=== PATIENT | female | born 1970 | race Caucasian/White ===

== ENCOUNTER 2019-07-26 15:07 | Inpatient (IN) ==
[2019-07-26] MEDS ORDERED: *HR* Heparin 10,000 UNIT/10 ML VIAL ONE ×2 (15:25→15:39)
[2019-07-26] MEDS ORDERED: 0.9 % Sodium Chloride 2,000 ML ONE (15:25)
[2019-07-26] MEDS ORDERED: Nitroglycerin 1,000 MCG/10 ML VIAL IV ONE ×2 (15:25→16:40)
[2019-07-26] MEDS ORDERED: Heparin 1,000 UNITS/500 mL 500 ML ONE (15:25)
[2019-07-26] MEDS ORDERED: ISOVUE-370 200 ML INFUS..BTL ONE (15:25)
[2019-07-26] MEDS ORDERED: *HR* FentaNYL (PF) 100 MCG/2 ML VIAL ONE (15:43)
[2019-07-26] MEDS ORDERED: *HR* Midazolam HCl 2 MG/2 ML VIAL ONE (15:43)
[2019-07-26] MEDS ORDERED: Ondansetron 4 MG/2 ML VIAL IVP PRN (17:12)
[2019-07-26 17:43] LABS: Basophils % 0.4 %; Eosinophils % 0.2 %; Hematocrit 39.5 % (35.3-44.9); Hemoglobin 13.1 g/dL (11.5-15.4); Immature Granulocytes % 0.2 % (0-4); Lymphocytes # 1.7 K/mcL (0.6-4.6); Lymphocytes % 17.3 %; Mean Corpuscular HGB Conc 33.2 g/dL (31.6-35.5); Mean Corpuscular Hemoglobin 31.4 pg (28.0-33.3); Mean Corpuscular Volume 94.7 fL (83.0-100.0); Mean Platelet Volume 9.7 fL (9.4-12.4); Monocytes # 0.3 K/mcL (0.0-1.3); Monocytes % 2.8 %; Neutrophils # 7.7 K/mcL (1.6-8.9); Platelet Count 244 K/mcL (140-400); Red Blood Count 4.17 M/mcL (3.82-4.97); Red Cell Distribution Width 13.7 % (11.5-14.5); Segmented Neutrophils % 79.1 %; White Blood Count 9.7 K/mcL (4.3-11.1)
[2019-07-26] MEDS: 0.9 % Sodium Chloride 1,000 ML IVC SCH (18:04)
[2019-07-26] MEDS: Nicotine 14 MG PATCH.TD24 TD SCH (20:27)
[2019-07-26] MEDS: *HR* Ticagrelor 90 MG TABLET PO SCH (20:27)
[2019-07-26] MEDS: Acetaminophen 325 MG TABLET PO PRN (20:29)
[2019-07-27] MEDS: 0.9 % Sodium Chloride 1,000 ML IVC SCH ×3 (03:30→23:46)
[2019-07-27] MEDS: Acetaminophen 325 MG TABLET PO PRN ×3 (03:33→23:55)
[2019-07-27 06:39] LABS: Hematocrit 36.7 % (35.3-44.9); Hemoglobin 12.3 g/dL (11.5-15.4)
[2019-07-27 07:00] LABS: BUN/Creatinine Ratio 26 (6-26); Blood Urea Nitrogen 18 mg/dL (6-20); eGFR For African Americans > 60 (> 60); eGFR For Non-African Americans > 60 (> 60)
[2019-07-27 07:05] LABS: Troponin I 7.54 ng/mL (< 0.04)
[2019-07-27] MEDS: Nicotine 14 MG PATCH.TD24 TD SCH ×2 (08:11→13:58)
[2019-07-27] MEDS: *HR* Ticagrelor 90 MG TABLET PO SCH ×2 (08:11→19:57)
[2019-07-27] MEDS: Aspirin 81 MG TAB.CHEW PO SCH (08:11)
[2019-07-27] MEDS: Metoprolol XL (24 HR) Succ 25 MG TAB.ER.24H PO SCH (10:16)
[2019-07-28 05:02] LABS: Chol/HDL Ratio 3.2 (0-4.9)
[2019-07-28] MEDS: Nicotine 14 MG PATCH.TD24 TD SCH (07:46)
[2019-07-28] MEDS: *HR* Ticagrelor 90 MG TABLET PO SCH (07:48)
[2019-07-28] MEDS: Metoprolol XL (24 HR) Succ 25 MG TAB.ER.24H PO SCH (07:48)
[2019-07-28] MEDS: Aspirin 81 MG TAB.CHEW PO SCH (07:48)
[2019-07-28] MEDS: 0.9 % Sodium Chloride 1,000 ML IVC SCH (07:48)
[2019-07-28] MEDS ORDERED: Ondansetron 4 MG/2 ML VIAL IVP PRN (14:04)
[2019-07-28] MEDS: Acetaminophen 325 MG TABLET PO PRN ×2 (15:34→21:21)
[2019-07-29 02:42] LABS: Hemoglobin 12.4 g/dL (11.5-15.4); Mean Corpuscular HGB Conc 32.6 g/dL (31.6-35.5); Mean Corpuscular Hemoglobin 30.7 pg (28.0-33.3); Mean Corpuscular Volume 94.1 fL (83.0-100.0); Mean Platelet Volume 10.4 fL (9.4-12.4); Platelet Count 235 K/mcL (140-400); Red Blood Count 4.04 M/mcL (3.82-4.97); Red Cell Distribution Width 13.7 % (11.5-14.5); White Blood Count 8.7 K/mcL (4.3-11.1)
[2019-07-29 03:02] LABS: BUN/Creatinine Ratio 28 (6-26); Blood Urea Nitrogen 21 mg/dL (6-20); Calcium 9.4 mg/dL (8.6-10.3); Carbon Dioxide 22 mEq/L (23-29); Chloride 108 mEq/L (98-107); Glucose 92 mg/dL (70-105); Osmolality,Calculated 287 (280-300); Potassium 3.9 mEq/L (3.5-5.1); Sodium 137 mEq/L (136-145); eGFR For African Americans > 60 (> 60); eGFR For Non-African Americans > 60 (> 60)
[2019-07-29] MEDS ORDERED: Nicotine 14 MG PATCH.TD24 TD SCH (09:00)
[2019-07-29] MEDS ORDERED: Metoprolol XL (24 HR) Succ 25 MG TAB.ER.24H PO SCH (09:00)
[2019-07-29] MEDS ORDERED: Aspirin 81 MG TAB.CHEW PO SCH (09:00)
[2019-07-29 11:33] VITALS: BP 101/68
== END 2019-07-29 12:30 | disposition home or self-care (01) | DRG 247 ==
LOC: ICNU 17:02 → 3NENU 07-28 14:01
PROVIDERS: ADMIT Internal Medicine Cardiovascular Disease; ATTEND Internal Medicine Cardiovascular Disease